=== PATIENT | female | born 1950 | race Caucasian/White ===

== ENCOUNTER 2018-08-27 11:09 | Emergency (ER) | payer OTHER ==
[2018-08-27 11:19] VITALS: TEMP 97.8; BMI 24.4
--- NOTE | 2018-08-27 11:35 | PDOC ---
Attending Attestation - HPI HPI: This patient is an otherwise healthy 68 year old woman who presents with lower abdominal pain since Tuesday with associated constipation. She describes her abdominal pain as originally RLQ but now worse on LLQ. She states that she normally has a bowel movement every day but did not have one yesterday. She also reports acute onset of rectal pain this morning which she attributes to straining. Allergies: denies Denies abdominal surgeries. She states that she never had a colonoscopy. Did not take any medication for the pain. Denies any nausea, vomiting, diarrhea, rectal bleeding. Denies any dysuria. - Physicial Exam PE: GENERAL: Awake, alert, and fully oriented, in no acute distress HEAD: No signs of trauma LUNGS: Breath sounds equal, clear to auscultation bilaterally. No wheezes, and no crackles HEART: Regular rate and rhythm, normal S1 and S2, no murmurs, rubs or gallops ABDOMEN: Soft, LLQ and suprapubic tenderness to palpation, normoactive bowel sounds. No guarding, no rebound. No masses EXTREMITIES: Normal range of motion, no edema. No clubbing or cyanosis. No cords, erythema, or tenderness NEUROLOGICAL: Cranial nerves II through XII grossly intact. Normal speech, normal gait SKIN: Warm, Dry, normal turgor, no rashes or lesions noted. <Valencia Hollis - Last Filed: 08/27/18 13:21> - Resident Resident Name: Sabrina Camargo - ED Attending Attestation I have performed the following: I have examined & evaluated the patient, The case was reviewed & discussed with the resident, I agree w/resident's findings & plan, Exceptions are as noted - Medical Decision Making 08/27/18 11:35 I, Dr. Aida Woody, DO, attest that this document has been prepared under my direction and personally reviewed by me in its entirety. I further attest, that it accurately reflects all work, treatment, procedures and medical decision -making performed by me. 08/27/18 12:59 a/p: 68yo female with constipation x 2 days, straining and rectal pain, abd pain since tuesday -no n/v/d -last bm was tuesday -no fevers -no dysuria -LLQ and suprapubic ttp -no prior colonoscopy -will send labs, ct abd/pelvis with iv contrast -ivf hydration, will monitor and reassess -iv tylenol for pain 08/27/18 14:04 mildly elevated wbc no uti acute diverticulitis on ct pt is nontoxic appearing, will give oral abx and outpt management with follow up GI pt has been eating and tolerating PO at home 08/27/18 14:20 pt stable for dc to home <Aida Woody - Last Filed: 08/27/18 14:21> Attestations - Attestations 08/27/18 13:22 Documentation prepared by Valencia Hollis, acting as medical sales representative for Aida Woody DO. <Valencia Hollis - Last Filed: 08/27/18 13:21>
[2018-08-27] MEDS ORDERED: ACETAMINOPHEN 1000 MG/100 ML VIAL (NON FORMULARY) IVPB ONE (11:56)
[2018-08-27] MEDS ORDERED: ACETAMINOPHEN INJECTION 100 ML IVPB ONE (12:16)
[2018-08-27 12:35] LABS: BASO % 0.9 % (0-2.0); HEMATOCRIT 46.7 % (32.4-45.2); HEMOGLOBIN 15.5 GM/dL (10.7-15.3); MCH 29.4 pg (25.7-33.7); MCHC 33.3 g/dl (32.0-36.0); MEAN CELL VOLUME 88.4 fl (80-96); MEAN PLT VOLUME 7.7 fl (7.5-11.1); MONO % 8.5 % (3.8-10.2); NEUT % 66.6 % (42.8-82.8); PLATELET COUNT 309 K/MM3 (134-434); RBC 5.29 M/mm3 (3.60-5.2); RDW 13.3 % (11.6-15.6); WHITE BLOOD COUNT 11.4 K/mm3 (4.0-10.0)
[2018-08-27 12:43] LABS: URINE APPEARANCE CLEAR; URINE BILIRUBIN NEGATIVE (NEGATIVE); URINE COLOR YELLOW; URINE GLUCOSE (UA) NEGATIVE (NEGATIVE); URINE KETONE NEGATIVE (NEGATIVE); URINE LEUK ESTERASE NEGATIVE (NEGATIVE); URINE NITRITE NEGATIVE (NEGATIVE); URINE PROTEIN NEGATIVE (NEGATIVE)
--- NOTE | 2018-08-27 12:53 | PDOC ---
History of Present Illness - General Chief Complaint: Pain Stated Complaint: ABDOMINAL PAIN Time Seen by Provider: 08/27/18 11:26 - History of Present Illness Initial Comments: Julia Elder is an otherwise healthy 68yo woman who presents with R pelvic and suprapubic pain since Tuesday with associated constipation. She states that she at out and had a hot dog and fries on Tuesday, and she started to have lower abdominal pain after that. Initially it felt like ' ovluation pain" in the right suprapubic area, but it then moved to the midline. She has had very little appetite since then, but she denies any nausea, vomiting , diarrhea, or fever. She does report chills without shivering. She also reports constipation for two days, with her last BM on Tuesday. This is abnormal as she usually has a regular BP every morning. She was concerned because of acute rectal pain while straining to have a bowel movement this morning; she has never experienced anything similar before. Past History - Past Medical History Allergies/Adverse Reactions: Allergies Allergy/AdvReac Type Severity Reaction Status Date / Time No Known Allergies Allergy Verified 08/27/18 11:19 Home Medications: Ambulatory Orders Atorvastatin Ca [Lipitor] 10 mg PO HS 08/27/18 Ciprofloxacin HCl [Cipro] 500 mg PO Q12H #20 tablet 08/27/18 Metronidazole 500 mg PO Q8H #30 tablet 08/27/18 COPD: No - Suicide/Smoking/Psychosocial Hx Smoking History: Never smoked Review of Systems - Review of Systems Comments:: General: No fevers, + chills, +Poor appetite, no malaise HEENT: No changes in vision, no changes in hearing, no congestion, no sore throat CV: No chest pain, no palpitations, no LE edema Pulm: No SOB, no cough, no wheezing GI: No nausea or vomiting, +constipation x2 days, no melena, +rectal pain, +abd pain : No frequency, no urgency, no dysuria Musc: No back pain, no joint swelling, no recent injury Skin: No rash, no lesions, no erythema Endo: No excessive thirst, no heat/cold intolerance Heme: No unusual bruising or bleeding, no swollen glands Neuro: No syncope, no numbness/tingling, no focal weakness Vasc: No claudication Psych: No recent change in mood, no SI or HI *Physical Exam - Vital Signs Last Vital Signs Temp Pulse Resp BP Pulse Ox 97.8 F 97 H 18 133/92 96 08/27/18 11:15 08/27/18 11:15 08/27/18 11:15 08/27/18 11:15 08/27/18 11:15 - Physical Exam Comments: General: Comfortable, no acute distress HEENT: PERRL, EOMI, MMM, voice normal, normal neck ROM Cards: RRR, no murmur appreciated Pulm: Comfortable on room air, clear to auscultation bilaterally Abd: Soft, nondistended. Suprapubic TTP. : No CVA tenderness Rectal: Normal tone, no blood noted, small perianal skin tear at 5 o'clock Ext: Atraumatic. No LE edema. ROM intact. Strength 5/5 and equal bilaterally Vasc: Extremities WWP. Skin: Normal color, no rashes or lesions Neuro: A&Ox3, CN grossly intact, normal speech, motor/sensory grossly intact and symmetric Psych: Mood appropriate to situation ED Treatment Course - LABORATORY CBC & Chemistry Diagram: 08/27/18 12:26 08/27/18 11:53 - ADDITIONAL ORDERS Additional order review: 08/27/18 12:26 RBC 5.29 H MCV 88.4 MCHC 33.3 RDW 13.3 MPV 7.7 Neutrophils % 66.6 Lymphocytes % 23.0 Monocytes % 8.5 Eosinophils % 1.0 Basophils % 0.9 - Medications Given in the ED: ED Medications Discontinued Medications Generic Name Dose Route Start Last Admin Trade Name Cheryl PRN Reason Stop Dose Admin Acetaminophen 1,000 mg 08/27/18 11:56 08/27/18 12:35 Ofirmev Injection - IVPB 08/27/18 11:57 1,000 mg ONCE ONE Administration Medical Decision Making - Medical Decision Making 08/27/18 12:51 Julia Elder is an otherwise healthy 68yo woman who presents with R pelvic and suprapubic pain since Tuesday with associated constipation. She also reports acute onset of rectal pain this morning after straining to have a BM. - Rectal pain most likely due to skin tear observed on exam. No other abnormalities on rectal exam - Abd exam notable for suprapubic tenderness - Most likely UTI, possibly secondary to constipation. Possibly diverticulitis, pain 2/2 constipation, colitis. No h/o abdominal surgery or vomiting, low suspicion for obstruction. No vaginal discharge or bleeding, low suspicion for uterine pathology. - CBC, CMP, mag, phos, UA, UCx - IV acetaminophen for pain 08/27/18 13:27 - Labs reviewed. Notable for WBC 11, otherwise unremarkable - UA negative - Given lower abdominal pain, new constipation, and no UTI, increased concern for intra-abdominal pathology. Pt reports that she has never had a colonoscopy. CT abd/pelvis ordered following discussion with Dr Woody. 08/27/18 14:06 - CT completed. Indicates acute diverticulitis - Given uncomplicated diverticulits w/o abscess, tolerating PO, no fever or significant lab abnormalities will likely be able to d/c with outpatient management and close follow up. Will discuss w/ Ms Jerrod and her . 08/27/18 14:19 - Feels comfortable going home. Discussed home care and return precautions at length - Advised pt to schedule colonoscopy. Will refer to GI for diverticulitis and colonoscopy f/u Discussed with Dr Woody. Sabrina Camargo PGY1 *DC/Admit/Observation/Transfer Diagnosis at time of Disposition: Diverticulitis - Discharge Dispostion Disposition: HOME Condition at time of disposition: Stable Decision to Admit order: No - Prescriptions Prescriptions: Ciprofloxacin HCl [Cipro] 500 mg PO Q12H #20 tablet Metronidazole 500 mg PO Q8H #30 tablet - Referrals Referrals: ON STAFF,NOT [Primary Care Provider] - Gaurang Ford MD [Staff Physician] - - Patient Instructions Printed Discharge Instructions: DI for Diverticulitis Additional Instructions: Discharge Instructions: You were seen in the emergency department for abdominal pain. You were found to have diverticulitis, which is an infection of the colon. Diverticulosis: pouches off the colon, usually asymptomatic Diverticulitis: Infection and inflammation of the diverticuli Home Care: - You have been prescribed two antibiotics that should be taken until the prescriptions are completed (total of 10 days). You received the first dose in the ED. 1. Metronidazole (Flagyl) - 500mg every 8hrs 2. Ciprofloxacin - 500mg every 12 hours - Do your best to take the antibiotics on schedule. You may take the second dose of each medication this evening, and then start with the every 8 or every 12 hours in the morning. - You may use 650-1000mg acetaminophen (Tylenol) or 600mg ibuprofen (Motrin, Advil) every 6-8 hours as needed for pain. If you have continued pain, you may alternate these medications every 3-4 hours for additional pain control. It is recommended that you take ibuprofen with food to prevent upset stomach. - You have been referred to a GI doctor, Dr Ford, for follow up. You should see him within the next week for follow up of your diverticulitis. You should also schedule a colonoscopy. - For the next 2-3 days, it is recommended that you follow a liquid and soft food diet. Make sure you are staying well hydrated. Water, juices, yogurt, oatmeal, soup and similar items are all good options. - Seek immediate medical care if your symptoms worsen, you develop fever over 101F despite taking your antibiotics, you are unable to tolerate liquids by mouth, or you begin to feel dehydrated (dry mouth, low urination, lightheaded) or you have any other medical emergency. - Post Discharge Activity
[2018-08-27] MEDS ORDERED: SODIUM CHLORIDE 0.9% 1000 ML INFUS.BAG IV ONE (13:00)
[2018-08-27 13:07] LABS: ALBUMIN 3.3 g/dl (3.4-5.0); ALK PHOS 79 U/L (45-117); ANION GAP 6 MMOL/L (8-16); BILIRUBIN,TOTAL 0.3 mg/dL (0.2-1); BLOOD UREA NITROGEN 14 mg/dL (7-18); CALCIUM 8.9 mg/dL (8.5-10.1); CHLORIDE 105 mmol/L (98-107); CO2 26 mmol/L (21-32); CREATININE 0.9 mg/dL (0.55-1.3); GLUCOSE,RANDOM 108 mg/dL (74-106); MAGNESIUM 2.2 mg/dL (1.8-2.4); PHOSPHOROUS 3.2 mg/dL (2.5-4.9); POTASSIUM 5.4 mmol/L (3.5-5.1); SGOT/AST 19 U/L (15-37); SGPT/ALT 25 U/L (13-61); SODIUM 137 mmol/L (136-145); TOT PROT 7.1 g/dl (6.4-8.2)
[2018-08-27] MEDS ORDERED: metroNIDAZOLE 500 MG TABLET PO ONE (14:15)
[2018-08-27] MEDS ORDERED: CIPROFLOXACIN 500 MG TABLET (RESTRICTED TO ID) PO ONE (14:15)
[2018-08-27] MEDS ORDERED: metroNIDAZOLE 250 MG TABLET ONE (14:22)
[2018-08-27 14:43] VITALS: BP 128/85; PULSE 82
== END 2018-08-27 14:44 | disposition home or self-care (01) ==
LOC: JER 11:09
PROC: 3E033NZ Introduction of Analgesics, Hypnotics, Sedatives into Peripheral Vein, Percutaneous Approach (ICD-10-PCS; principal; 2018-08-27)
DX: K57.92 Diverticulitis of intestine, part unspecified, without perforation or abscess without bleeding (principal)
CPT/HCPCS: 36415; 74177-TC; 80053; 81003; 83735; 84100; 85025; 87086; 96374; 99282-25; J0131; J7030